=== PATIENT | male | born 1985 | race Caucasian/White ===

== ENCOUNTER 2017-07-31 10:31 | Emergency (ER) | payer OTHER ==
[~2017-07-31] VITALS: Ht 177.8 cm; Wt 86.2 kg
[~2017-07-31 10:31] MED LIST: CLEOCIN HCL300 MG PO; PERCOCET 325 MG1 TA2 PO
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
[2017-07-31 13:40] VITALS: BP 129/75
== END 2017-07-31 13:41 ==
LOC: ERH 10:31
DX: S29.012A Strain of muscle and tendon of back wall of thorax, initial encounter (principal); V49.40XA Driver injured in collision with unspecified motor vehicles in traffic accident, initial encounter; Y92.488 Other paved roadways as the place of occurrence of the external cause